=== PATIENT | male | born 1970 | race Two or more races ===

== ENCOUNTER 2024-08-05 10:05 | Day surgery (SDC) | payer MEDICAID, SELFPAY ==
[2024-08-05] VITALS (15 sets, daily range): BP systolic 109–156; BP diastolic 69–87; PULSE 54–85; RESP 11–21; TEMP 36.3–36.5; O2SAT 90–98; BMI 34.0
[2024-08-05] MEDS: DiphenhydrAMINE INJ 50 MG/ML VIAL 25 MG IV (11:39)
[2024-08-05] MEDS: fentaNYL CIT INJ 50 mCg/ML AMP 2ML (ASD USE ONLY) IV (11:40)
[2024-08-05] MEDS: MIDAZOLAM INJ 1 MG/ML VIAL 2 ML (ASD USE ONLY) IV (11:40)
[2024-08-05] MEDS: SIMETHICONE 40 MG/0.6 ML ORAL SYRINGE PO (11:47)
== END 2024-08-05 13:00 | disposition home or self-care (01) ==
PROVIDERS: PCP Family Medicine; Referring Provider Internal Medicine Gastroenterology; Visit Provider Internal Medicine Gastroenterology
PROC: 0DBE8ZX Excision of Large Intestine, Via Natural or Artificial Opening Endoscopic, Diagnostic (ICD-10-PCS; CPT 45380; principal; 2024-08-05 11:15)
DX: D12.0 Benign neoplasm of cecum (principal); D12.2 Benign neoplasm of ascending colon; D12.3 Benign neoplasm of transverse colon; D12.5 Benign neoplasm of sigmoid colon; K64.9 Unspecified hemorrhoids; K57.30 Diverticulosis of large intestine without perforation or abscess without bleeding
CPT/HCPCS: 45385; 45380; A4217; A4649; J1200; J2250; J3010; A9270

== ENCOUNTER 2024-08-07 06:50 | Day surgery (SDC) | payer MEDICAID, SELFPAY ==
[2024-08-07] VITALS (7 sets, daily range): BP systolic 129–167; BP diastolic 76–97; PULSE 66–72; RESP 11–18; TEMP 36.2–36.7; O2SAT 92–97; BMI 33.5
[2024-08-07] MEDS: DiphenhydrAMINE INJ 50 MG/ML VIAL 25 MG IV (08:30)
[2024-08-07] MEDS: BENZOCAINE 20% (Hurricaine) SPRAY 1 DOSE TOP (08:30)
[2024-08-07] MEDS: MIDAZOLAM INJ 1 MG/ML VIAL 2 ML (ASD USE ONLY) 2 MG IV (08:34)
[2024-08-07] MEDS: fentaNYL CIT INJ 50 mCg/ML AMP 2ML (ASD USE ONLY) IV (08:34)
--- NOTE | 2024-08-07 09:57 | SUR.PHASEII ---
0845: Pt received in [place] via gurney. Report from Payton SIMON. Pt sleepy. Easily aroused with eye opening then drifts back to sleep. Resp even, unlabored. No c/o pain, discomfort. 0915: Pt more awake, alert. Sitting up tolerating po fluids with no difficulty swallowing and no n/v. 0933: Pt fully awake, oriented x3. Pt was assisted to restroom. Ambulation steady. Pt requested brother in law interpret for him. Did not wish to use american sign language interpreter phone line. Pt and brother in law stated understanding of discharge instructions. Pt discharged from [facility] in stable condition.
== END 2024-08-07 09:33 | disposition home or self-care (01) ==
PROVIDERS: PCP Family Medicine; Referring Provider Internal Medicine Gastroenterology; Visit Provider Internal Medicine Gastroenterology
PROC: (CPT 43239; principal; 2024-08-07 07:30)
DX: K29.70 Gastritis, unspecified, without bleeding (principal); K74.60 Unspecified cirrhosis of liver; I85.10 Secondary esophageal varices without bleeding; K29.50 Unspecified chronic gastritis without bleeding
CPT/HCPCS: 43239; A4649; J1200; J2250; J3010; A9270